=== PATIENT | female | born 1995 | race Caucasian/White ===

== ENCOUNTER 2021-01-04 10:37 | Emergency (ER) | payer MEDICAID ==
[~2021-01-04] VITALS: Ht 167.6 cm; Wt 69.0 kg
[2021-01-04 10:46] VITALS: BP 121/72
[2021-01-04] MEDS ORDERED: OXYM30SP26 BOTHNSTRLS (11:30)
== END 2021-01-04 11:55 | disposition home or self-care (01) ==
LOC: ER 10:37
DX: B34.9 Viral infection, unspecified (principal); Z20.822 Contact with and (suspected) exposure to COVID-19
CPT/HCPCS: 99283; C9803; U0003; U0005